=== PATIENT | female | born 1980 ===

== ENCOUNTER 2016-09-19 10:08 | Emergency (ER) | payer SELFPAY ==
--- NOTE | 2016-09-19 12:32 | US ---
OB COMP <14 WKS, OB TRANSVAGINAL HISTORY: with spotting. The patient is expected to be at 10 weeks 1 day gestational age. COMPARISONS: None. FINDINGS: There is evidence of an intrauterine fluid collection with a visible pole. The fluid collection is of irregular contour. There is no yolk sac visualized. The mean sac diameter measures 3.21 cm. The crown to rump length measures 2.02 cm with a calculated gestational age of 8 weeks 4 days. The sonographic EDC is 04/27/2017. However, there are no heart tones identified. The maternal right ovary measures 3.7 x 2.3 x 3.6 cm. The left ovary measures 4.6 x 2.1 x 3.8 cm. There is a 1.7 cm hypoechoic focus seen within the left ovary likely reflecting a hemorrhagic or complicated corpus luteal cyst. No free fluid is visualized. There is a small focus of perigestational hemorrhage observed adjacent to the gestational sac measuring 25 x 15 x 12 mm in size. A 4.3 cm low echogenicity focus is also seen within the right aspect of the uterus posteriorly which may reflect a uterine fibroid. IMPRESSION: 1. An intrauterine fluid collection with a visible pole. The fluid collection is of irregular contour with size measurements equivalent to 8 weeks 4 days gestational age. However, no cardiac activity is identified suggestive of a demise. 2. A 1.7 cm hypoechoic nonvascular focus within the maternal left ovary which may reflect a complicated or hemorrhagic corpus luteal cyst.
== END 2016-09-19 12:57 | disposition home or self-care (01) ==
LOC: ED 10:08
DX: O20.0 Threatened abortion (principal); O99.331 Smoking (tobacco) complicating pregnancy, first trimester; F17.210 Nicotine dependence, cigarettes, uncomplicated; Z3A.11 11 weeks gestation of pregnancy